=== PATIENT | female | born 1990 | race Caucasian/White ===

== ENCOUNTER 2020-07-03 08:41 | Day surgery (SDC) | payer OTHER, SELFPAY ==
[~2020-07-03] VITALS: Ht 165.1 cm; Wt 59.0 kg
[2020-07-03] MEDS ORDERED: diphenhydrAMINE 50 MG/ML VIAL ONE (10:56)
[2020-07-03] MEDS ORDERED: fentaNYL citrate 0.05 MG/ML VIAL ONE (10:56)
[2020-07-03] MEDS ORDERED: MIDAZOLAM 5 MG/5 ML VIAL ONE (10:57)
[2020-07-03] MEDS ORDERED: fentaNYL citrate 0.05 MG/ML VIAL IVP ONE (11:40)
[2020-07-03] MEDS ORDERED: MIDAZOLAM 2 MG/2 ML VIAL IVP ONE (11:40)
[2020-07-03] MEDS ORDERED: diphenhydrAMINE 50 MG/ML VIAL IVP ONE (11:40)
== END 2020-07-03 12:06 | disposition home or self-care (01) ==
LOC: MDS 08:41 → MFCC 09:10 → MDS 12:06
PROVIDERS: ATTEND Internal Medicine Gastroenterology
DX: R14.0 Abdominal distension (gaseous) (principal); R11.2 Nausea with vomiting, unspecified; R10.9 Unspecified abdominal pain; Z90.49 Acquired absence of other specified parts of digestive tract; Z87.891 Personal history of nicotine dependence
CPT/HCPCS: 43239; 81025; 87426; J1200; J2250; J3010